=== PATIENT | female | born 1980 | race Caucasian/White ===

== ENCOUNTER 2016-10-25 19:22 | Emergency (ER) | payer MEDICAID ==
[2016-10-25 19:33] VITALS: RESP 18
[2016-10-25] MEDS ORDERED: IBUPROFEN 600 MG TAB PO ONE ×2 (20:00)
--- NOTE | 2016-10-25 21:33 | EDPHY ---
H & P Time Seen by Provider: 10/25/16 19:59 HPI/ROS: CHIEF COMPLAINT: left 4th and 5th finger injury HISTORY OF PRESENT ILLNESS: 36-year-old left-hand dominant female presents with a crush injury to her left hand. Patient was lifting a heavy dresser that dropped on her hand. She has a laceration to her left pinky finger. Tetanus is up-to-date, she denies any other complaint. No wrist pain. Smoking Status: Never smoked Physical Exam: GEN: Awake, alert, oriented, no acute distress RESP: nl resp effort MSK: Full active range of motion of left pinky and ring finger. Sensation intact to light touch, cap refill less than 2 seconds, no wrist pain SKIN: Distal pad of left pinky finger with 1 cm laceration, swelling, no fingernail involvement Constitutional: Initial Vital Signs Temperature (C) 36.6 C 10/25/16 19:29 Heart Rate 84 10/25/16 19:29 Respiratory Rate 18 10/25/16 19:29 Blood Pressure 99/85 H 10/25/16 19:29 O2 Sat (%) 100 10/25/16 19:29 O2 Delivery Mode Room Air Allergies/Adverse Reactions: No Known Allergies Allergy (Unverified 10/25/16 19:29) Home Medications: Medication Instructions Recorded Cephalexin [Keflex] 500 mg PO TID 4 Days 10/25/16 oxyCODONE/APAP 5/325 [Percocet 1 - 2 tab PO Q6H PRN #7 tab 10/25/16 5/325] MDM/Departure - MDM Imaging Results: Imaging Impressions Hand X-Ray 10/25/16 20:34 Impression: Contour deformity consistent with posttraumatic change to the distal tuft of the fifth finger. Imaging: I viewed and interpreted images myself Procedures: Procedure: Laceration repair. Verbal consent was obtained from the patient. The 1.5 cm laceration on the left pinky finger was anesthetized using digital block with 1% lidocaine without epinephrine mixed with 0.5% Marcaine without epinephrine. The wound was carefully irrigated by the emergency department rehab technician. Next, the wound was prepped and draped in sterile fashion and explored to its base with a gloved finger. No tendon injury was identified. No vascular injury was identified. No foreign bodies were identified. The wound was repaired with 5.0 Prolene, 3. Simple interrupted sutures. The wound repair was simple. The procedure was performed by myself. Tetanus and antibiotic status were addressed. Medications Given: Discontinued Medications Cephalexin (Keflex 500 Mg Prepack#4) 1 btl TAKEHOME EDNOW ONE PRN Reason: Protocol Stop: 10/25/16 21:38 Last Admin: 10/25/16 22:14 Dose: 1 btl Ibuprofen (Motrin) 600 mg PO EDNOW ONE Stop: 10/25/16 20:01 Last Admin: 10/25/16 20:00 Dose: 600 mg Oxycodone/Acetaminophen (Percocet 5/325mg Prepack#4) 1 btl TAKEHOME EDNOW ONE Stop: 10/25/16 21:38 Last Admin: 10/25/16 22:15 Dose: 1 btl ED Course/Re-evaluation: 36-year-old female presents with a crush injury to her left pinky finger. Tetanus is up-to-date, x-ray shows a tuft fracture. Patient is given a prescription for Keflex, she is given hand surgery to follow up with. 3 sutures were placed in her left pinky finger though due to significant swelling I could not get well approximation of the skin. Dressing was placed in patient agrees to follow up with hand doctor early next week. She is given strict return precautions for any signs of infection. - Depart Disposition: Home, Routine, Self-Care Clinical Impression: Crushing injury of left little finger Qualifiers: Encounter type: initial encounter Qualified Code(s): S67.197A - Crushing injury of left little finger, initial encounter Closed fracture of tuft of distal phalanx of finger Qualifiers: Encounter type: initial encounter Qualified Code(s): S62.639A - Displaced fracture of distal phalanx of unspecified finger, initial encounter for closed fracture Condition: Good Instructions: Cephalexin (By mouth), Oxycodone/Acetaminophen (By mouth), Finger Fracture (ED), Crush Injury (ED) Additional Instructions: Keep dressing clean and dry until you follow up with the hand doctor. Take your antibiotics 3 times a day for 5 days. Call the hand doctor 1st thing in the morning to schedule an appointment to be seen early next week. Elevate your hand as much as possible, take 600 mg of ibuprofen every 8 hours with food for 3-5 days for pain, take Percocet for severe pain. Prescriptions: Cephalexin [Keflex] 500 mg PO TID 4 Days oxyCODONE/APAP 5/325 [Percocet 5/325] 1 - 2 tab PO Q6H PRN #7 tab PRN Reason: Pain, Severe Referrals: Benny Mcclain MD [Medical Doctor] - As per Instructions (Hand doctor on-call)
[2016-10-25] MEDS ORDERED: OXYCODONE/APAP 5/325MG PREPACK#4 BTL TAKEHOME ONE (21:37)
[2016-10-25] MEDS ORDERED: CEPHALEXIN 500MG PREPACK#4 BTL TAKEHOME ONE (21:37)
[2016-10-25 22:16] VITALS: BP 108/68; PULSE 76; TEMP 98.1; O2SAT 98
== END 2016-10-25 22:15 | disposition home or self-care (01) ==
PROC: 0HQGXZZ Repair Left Hand Skin, External Approach (ICD-10-PCS; principal; 2016-10-25)
DX: S62.637A Displaced fracture of distal phalanx of left little finger, initial encounter for closed fracture (principal); S67.197A Crushing injury of left little finger, initial encounter; W20.8XXA Other cause of strike by thrown, projected or falling object, initial encounter; Y99.8 Other external cause status; Y93.89 Activity, other specified